=== PATIENT | female | born 1990 | race Caucasian/White ===

== ENCOUNTER 2017-03-15 09:48 | Emergency (ER) | payer SELFPAY | END 2017-03-15 15:20 | disposition home or self-care (01) | LOC: ER 09:48 | DX: M54.5 Low back pain (principal); M79.605 Pain in left leg; R05 Cough; M25.512 Pain in left shoulder; F17.210 Nicotine dependence, cigarettes, uncomplicated; Z88.2 Allergy status to sulfonamides; Z88.8 Allergy status to other drugs, medicaments and biological substances | CPT/HCPCS: 36415; 72146; 72148; 80307; 96361; 96374; 96375; 96376; J1885 ==